=== PATIENT | male | born 1970 | race African-American/Black ===

== ENCOUNTER 2018-12-12 22:10 | Emergency (ER) | payer OTHER ==
[~2018-12-12] VITALS: Ht 175.3 cm; Wt 79.4 kg
--- NOTE | 2018-12-12 22:27 | NUR ---
ED Nurse Note: Patient walked in to ER c/o right arm pain /. pt reports hitting right forearm agains a pole. AO4. facial grimacing noted.
[2018-12-12 22:28] VITALS: BP 137/76
--- NOTE | 2018-12-12 22:53 | Emergency Room Report ---
History of Present Illness General Chief Complaint: Upper Extremity Injury Source: Patient Present Illness HPI This a 48-year-old male who is right-hand dominant. He presents with chief complaint of right forearm pain. Onset occurred about 30 minutes to an hour prior to arrival. He got out of the car and swelling his arm and it hit the edge of pole. He complained of distal forearm pain. Worse with movement. He thought it was dislocated so he is trying Enke on it. He heard some crepitance. Pain is 9 out of 10. Worse with movement. Better with rest. No other injury. Allergies: Coded Allergies: ACETAMINOPHEN (Verified Allergy, Unknown, 12/12/18) Uncoded Allergies: PENICILLIN (Allergy, Unknown, 12/12/18) Patient History Past Medical History: see triage record, old chart reviewed, HTN Past Surgical History: other Pertinent Family History: none Social History: Denies: drug use Immunizations: other Reviewed Nursing Documentation: PMH: Agreed; PSxH: Agreed Nursing Documentation-PMH Hx Hypertension: Yes Hx Asthma: Yes Review of Systems Eye: Denies: eye pain, blurred vision ENT: Denies: ear pain, nose congestion, throat swelling Respiratory: Denies: cough, shortness of breath Cardiovascular: Denies: chest pain, palpitations Gastrointestinal: Denies: abdominal pain, diarrhea, nausea, vomiting Musculoskeletal: Reports: joint swelling, muscle pain; Denies: back pain, joint pain Skin: Denies: rash Neurological: Denies: headache, numbness Endocrine: Denies: increased thirst, increased urine Hematologic/Lymphatic: Denies: easy bruising All Other Systems: negative except mentioned in HPI Physical Exam Vital Signs Date Time Temp Pulse Resp B/P (MAP) Pulse Ox O2 Delivery O2 Flow Rate FiO2 12/12/18 22:16 97.3 82 24 101/56 (71) 98 Room Air Vitals normal Sp02 EP Interpretation: reviewed, normal General Appearance: well appearing, no apparent distress, alert Head: normocephalic, atraumatic Eyes: bilateral eye PERRL, bilateral eye EOMI ENT: hearing grossly normal, normal pharynx Neck: full range of motion, supple, no meningismus Respiratory: chest non-tender, lungs clear, normal breath sounds Cardiovascular #1: regular rate, rhythm, no murmur Gastrointestinal: normal bowel sounds, non tender, no mass, no organomegaly, no bruit, non-distended Musculoskeletal: back normal, gait/station normal, normal range of motion, other - Right forearm: There is tenderness and swelling to the distal radius area. Pulse normal. Elbow nontender. Wrist nontender. Psychiatric: mood/affect normal Medical Decision Making Diagnostic Impression: Primary Impression: Distal radius fracture, right Qualified Codes: S52.591A - Other fractures of lower end of right radius, initial encounter for closed fracture ER Course Patient presents with a distal radius fracture. Mildly displaced. Patient splinted. Will discharge home with orthopedic follow-up. Other X-Ray Diagnostic Results Other X-Ray Diagnostic Results : X-Ray ordered: Right forearm x-rays # of Views/Limited Vs Complete: 3 View Indication: Pain EP Interpretation: Yes Interpretation: no dislocation, no soft tissue swelling, other - distal radius frx Impression: Other - radius frx Electronically Signed by: Joseph Servin MD Last Vital Signs Date Time Temp Pulse Resp B/P (MAP) Pulse Ox O2 Delivery O2 Flow Rate FiO2 12/12/18 22:28 97.3 55 22 137/76 99 Room Air Status: improved Disposition: HOME, SELF-CARE Condition: Stable Scripts Ibuprofen* (MOTRIN*) 600 Mg Tablet 600 MG ORAL THREE TIMES A DAY, #30 TAB 0 Refills Prov: Joseph Servin MD 12/12/18 Hydrocodone/Acetaminophen 5-325* (HYDROCODONE/ACETAMINOPHEN 5-325*) 1 Each Tablet 1 TAB ORAL Q6H PRN for For Pain, #30 TAB 0 Refills Prov: Joseph Servin MD 12/12/18 Additional Instructions: Elevate arm. Icepack to affected area. Follow-up with your doctor within a week. You will need a referral to see orthopedic doctor. Return if worse. Joseph Servin MD Dec 12, 2018 22:53
[2018-12-12] MEDS ORDERED: HYDROcodone/Acetamin 5/325 tab ORAL ONE ×2 (23:00→23:45)
[2018-12-12] MEDS ORDERED: IBUPROFEN600 MG ORAL (23:28)
[2018-12-12] MEDS ORDERED: HYDROCODON-ACE1 EA15 ORAL (23:28)
[2018-12-12 23:45] VITALS: BP 137/76
--- NOTE | 2018-12-12 23:45 | NUR ---
ER DISCHARGE NOTE: Patient is cleared to be discharged per ERMD, pt is aox4, on room air, with stable vital signs. pt was given dc and prescription instructions, pt was able to verbalize understanding, pt id band removed. pt is able to ambulate with steady gait. pt took all belongings.
--- NOTE | 2018-12-13 14:04 | Diagnostic Imaging Report ---
Indication: Forearm painPain Findings: 2 views of the right forearm were obtained. There is acute nondisplaced fracture involving the distal shaft of the radius. Fracture is comminuted. There is no angulation or displacement. IMPRESSION: Acute fracture of the radial shaft
== END 2018-12-12 23:45 | disposition home or self-care (01) ==
LOC: EMR 23:03
DX: S52.591A Other fractures of lower end of right radius, initial encounter for closed fracture (principal); X58.XXXA Exposure to other specified factors, initial encounter; Y92.9 Unspecified place or not applicable; Z88.0 Allergy status to penicillin; Z88.6 Allergy status to analgesic agent; I10 Essential (primary) hypertension
CPT/HCPCS: 99283